=== PATIENT | female | born 1975 | race Caucasian/White ===

== ENCOUNTER 2020-10-13 13:45 | Observation (INO) | payer BC, OTHER ==
[~2020-10-13] VITALS: Ht 170.2 cm; Wt 92.0 kg
[~2020-10-13 13:45] MED LIST: GLUCAGON EMERGEN1 MG INJ; HUMALOG100 UNITS/ IV; HYDROCODON-ACE1 EA10 PO; LEVOTHYROXINE25 MCG PO; METFORMIN HCL500 MG PO; NAUZENE TABLET1 EACH PO; ONDANSETRON HCL4 MG PO; PREDNISOLONE ACE5 ML OD
[2020-10-13] MEDS ORDERED: LEVOTHYROXINE100 MCG PO (14:12)
[2020-10-13] MEDS ORDERED: OZEMPIC0.25 MG/0. SUB-Q (14:13)
--- NOTE | 2020-10-13 19:50 | NUR ---
pt on floor at this time, vitals taken for pt admit
--- NOTE | 2020-10-13 20:03 | NUR ---
pt ARRIVED TO FLOOR. TRANSFERRED SELF FROM STRETCH TO BED. VERY DROWSY. ORIENTED TO ALL. SALVADOR ANSWERED QUESTIONS. ASSESSMENT DONE. pt HAS LR INFUSING. pt DENIES PAIN AND NAUSEA AT THIS TIME. REQUESTED TO BE ALLOWED TO SLEEP. CALL LIGHT WITHIN REACH. LEFT FLOOR AT THIS TIME.
--- NOTE | 2020-10-13 21:54 | NUR ---
IN TO GIVE MEDICATIONS. BOLUS COMPLETED, IVF INFUSING PER ORDERS. MEDICATIONS GIVEN (SEE MAR). BLOOD SUGAR CHECKED. pt GAVE BOLUS USING INSULIN PUMP. pt DENIES NAUSEA AND PAIN AT THIS TIME. CALL LIGHT WITHIN REACH.
--- NOTE | 2020-10-14 00:55 | NUR ---
PATIENT RESTING QUIETLY ON HER LEFT SIDE, EYES CLOSED, RESPIRATIONS REGULAR AND EVEN, CALL LIGHT IN REACH.
--- NOTE | 2020-10-14 03:22 | NUR ---
PATIENT GOT NAUSEATED AFTER GETTING UP AND GOING TO THE BATHROOM. REGLAN WAS ALREADY GIVEN SCHEDULED, SO 4MG IV ZOFRAN GIVEN.
--- NOTE | 2020-10-14 04:53 | NUR ---
PATIENT STARTED HAVING DRY HEAVES AND WAS DUE FOR NO OTHER NAUSEA MEDICATION, BUT PHENERGAN. 12.5MG IV PHENERGAN IN 20 MLS NS PROGRAMED TO BE GIVEN OVER 15 MINUTES PER IV PUMP.
--- NOTE | 2020-10-14 05:05 | NUR ---
PATIENT'S NAUSEA WAS RELIEVED AFTER PHENERGAN INFUSION COMPLETE, AND PATIENT RESTING QUIETLY AT THIS TIME. CALL LIGHT IN REACH.
--- NOTE | 2020-10-14 06:05 | NUR ---
PATIENT HAS HAD REGLAN X1 SCHEDULED FOR NAUSEA THIS SHIFT AFTER I TOOK OVER THE PATIENT AT 2345, WELL 4MG OF ZOFRAN X1 IV, AND LATER IN THE SHIFT BEFORE REGLAN OR ZOFRAN DUE AGAIN 12.5MG IV PHENERGAN GIVEN PER POLICY. PATIENT'S NAUSEA IS CONTROLLED AT THIS TIME, PATIENT DOES NOT WANT TO TRY AND TAKE HER THYROID MEDICATION THIS AM AND HAS REFUSED IT. PATIENT GETTING LABS AT THIS TIME. CALL LIGHT IS IN REACH. PATIENT DID HAVE 1 PRN BLOOD SUGAR DONE THIS MORNING WITH A SUGAR OF 198 AND PATIENT GAVE HERSELF O.8UNITS OF INSULIN PER HER INSULIN PUMP.
--- NOTE | 2020-10-14 06:56 | NUR ---
IN TO SBA PT TO TOILET, TOLERATES WELL, NAUSEA AT TIMES, 400ML YELLOW URINE NOTED, PT SITTING AT BEDSIDE AT THIS TIME, PT DENIES NEEDING WATER REFILLED AT THIS TIME, NO FURTHER NEEDS AT THIS TIME
--- NOTE | 2020-10-14 07:30 | NUR ---
pt c/o nausea and dry heaving during report. In to give scheduled reglan. Pt remains on clear liquid diet. Refusing breakfast d/t nausea. BG 186, pt adjusted her personal pump to give appropriate dose also taking note of decreased oral intake. Pt has been slightly tachycardic, HR this am was 110-115. at bedside, call light in reach.
--- NOTE | 2020-10-14 09:35 | NUR ---
SBA WITH PATIENT TO MOLLY. MIO CHANGED. SPOUSE IN ROOOM. VITALS AND I&OS CHARTED. BREAKFAST ON BEDSIDE TABLE. FRESH ICE WATER PROVIDED, CALL LIGHT IN REACH
--- NOTE | 2020-10-14 09:55 | NUR ---
Pt nausea unrelieved by reglan. No emesis noted, however still dry-heaving occasionally. Pt given zofran and will continue to monitor. Dr. Israel in to see pt, WBC are 24 today and pt has been tachycardic. Dr think it is likely d/t inflammatory reaction to new diabetic medication pt started 3 weeks ago. New orders for abdominal and pelvic CT, reglan increased to 10 mg q6h. Pt denies pain at this time. SBA for ambulation. remains in room. Call light in reach.
--- NOTE | 2020-10-14 12:15 | NUR ---
Pt nausea still present and pt requesting phenergan. Given 12.5 phenergan through IV pump by Nancy BECK. Pt continues to refuse lunch and has had minimal PO intake. LR infusing @ 100 mls/hr. Temp 99.0. Pt appears flushed but denies feeling warm or chilled.
--- NOTE | 2020-10-14 13:30 | NUR ---
Pt has been more drowsy and sleeping on and off since receiving phenergan. remains at bedside.
--- NOTE | 2020-10-14 16:00 | NUR ---
PT UP TO BATHROOM TO VOID 700 MLS CLEAR, YELLOW URINE. DENIES DIZZINESS W/ AMBULATION. PT ALSO DENYING NAUSEA AT THIS TIME. PT SBA, NEEDS MINIMAL ASSISTANCE. PT DENIES APPETITE BUT REQUESTING DIET 7UP. MOUTH IS DRY. PT APPEARS FLUSHED, TEMP 99.3. HR 108. BP 168/78. CT SCAN RESULTS IN AND SHOW NO FINDINGS ASIDE FROM DISTENDED BLADDER. PT'S REPORTS SHE HAS BEEN NAUSEOUS AND NOT EATING WELL SINCE STARTING NEW MEDICATION 3 WEEKS AGO. PT LAST BM WAS 10/11, SHE REPORTS IT'S NORMAL FOR HER TO GO A FEW DAYS W/OUT REGULAR BM'S. ALSO COULD BE D/T LACK OF PO INTAKE. WAITING TO SEE DR. DEVRIES TO DISCUSS RESULTS BEFORE LEAVING.
--- NOTE | 2020-10-14 17:26 | NUR ---
DR. DEVRIES NOTIFIED OF PT MOST RECENT VS, BP 168/78 HR 108 AND TEMP 99.3 AND PT FLUSHED APPEARANCE. NEW ORDERS FOR CARVEDILOL 6.25 MG. REPORTS PT WAS ALSO FLUSHED IN APPEARANCE YESTERDAY. RN GIVEN PERMISSION TO NOTIFY KAYE AND PT OF NO ACUTE FINDINGS IN TODAY'S CT SCAN. BG'S HAVE BEEN 166-186 TODAY, INSULIN PUMP BEEN ADJUSTED BY PT ACCORDINGLY.
--- NOTE | 2020-10-14 18:01 | NUR ---
IN TO GIVE CARVIDELOL AND NOTIFY PT AND OF CT RESULTS PER PERMISSION FROM DR. DEVRIES. PT NOW C/O NAUSEA AGAIN, DRY HEAVING AND HICCUPS WELL. ZOFRAN IV GIVEN. PT C/O BURNING W/ LEFT WRIST IV FLUSH, MINIMAL REDNESS AND SWELLING NOTED AROUND SITE. IV REMOVED. RAC IV REMAINS INTACT. LR CONTINUES TO INFUSE @ 100 MLS/HR. NO LONGER AT BEDSIDE, WILL RETURN IN THE MORNING. PT CALL LIGHT WITHIN REACH.
--- NOTE | 2020-10-14 21:52 | NUR ---
PATIENT IS HAVING NAUSEA AND THIS WAS NOT RELIEVED WITH 10MG IV REGLAN AND NOT DUE FOR ZOFRAN YET, SO 12.5MG IV PHENERGAN IN 20MLS NS GIVEN PER PROTOCAL ON THE IV PUMP. PATIENT IS HAVING NO PAIN, IV FLUSHES WELL, AND FLUIDS INFUSING WNL. CALL LIGHT IS IN REACH.
--- NOTE | 2020-10-14 22:45 | NUR ---
IN RM GET VITALS, I&Os, RN TO BE IN RM SHORTLY
--- NOTE | 2020-10-15 00:05 | NUR ---
PATIENT IS RESTING QUIETLY, BUT IS AWAKE. NAUSEA REMAINS RESOLVED AT THIS TIME AND PATIENT HAS NO REQUESTS OR NEEDS AT THIS TIME. CALL LIGHT IN REACH.
--- NOTE | 2020-10-15 00:10 | NUR ---
PT CALLED D/T BEEPING IV PUMP. NEW BAG OF LR IS NOW INFUSING. PT'S IV IS A LITTLE LEAKY BUT FLUSHES FINE AND CAUSES NO PAIN. THERE IS NO SWELLING IN PT'S ARM WELL. GAVE PT A PILLOW TO PROP HER ARM ON AND PLACED A LITTLE GAUZE UNDERNEATH EDGE OF IV TAPE TO SEE IF IT GETS WET. ADVISED PT TO CALL IF IT LEAKS MORE OR IF SHE HAS ANY PAIN OR SWELLING. CALL LIGHT IS CLOSE.
--- NOTE | 2020-10-15 02:30 | NUR ---
PATIENT RIGHT AC IV WAS LEAKING, NO PAIN OR REDNESS AT THE SITE, TRIED TO REPOSITION AND REDRESS AND STILL LEAKING. IV DC'D, ATTEMPTED LEFT AC IV START START WITHOUT SUCESS.
--- NOTE | 2020-10-15 02:51 | NUR ---
ATTEMPTED TO START IV ON PT. PRIMARY RN IS IN THE ROOM ATTEMPTING IV START AT THIS TIME. PT IS A HARD START, NO RN AVAILABLE THAT CAN DO US GUIDED AT THIS TIME.
--- NOTE | 2020-10-15 03:00 | NUR ---
ATTEMPTED 2 MORE IV STARTS WITHOUT SUCESS, CALLING NURSE SUPERVISOR EDGING.
--- NOTE | 2020-10-15 03:49 | NUR ---
WAS CALLED PATIENT HAS HAD 7 ATTEMPTS FOR AN IV START WITHOUT SUCCESS. THERE IS A GUIDED ULTRASOUND NURSE ON SHIFT IN THE MORNING, SO ORDERS FROM INCLUDED HOLDING IV FLUIDS UNTIL IV ACCESS COULD BE RESTARTED, REGLAN 10MG PO SCHEDULED Q6HRS, 4MG SL ZOFRAN Q6HRS PRN NAUSEA, 25MG PHENERGAN TN SUPPOSITORY Q6 PRN NAUSEA. PATIENT HAS NO NAUSEA AT THIS TIME.
--- NOTE | 2020-10-15 06:30 | NUR ---
PATIENT HAD SOME IV PHENERGAN TOWARDS THE FIRST PART OF THE SHIFT AND BLOOD PRESSURE WAS ELEVATED, BUT CAME DOWN AFTER 12.5MG IV PHENERGAN GIVEN FOR NAUSEA. PATIENT HAS BEEN VOIDING WELL. PATIENT LOST HER ONLY IV SITE AFTER 2AM AND SHE IS A VERY HARD START AND 7 ATTEMPTS WERE MADE BETWEEN 4 RNS WITHOUT SUCCESS. FLUIDS PUT ON HOLD UNTIL AN ULTRASOUND GUIDED IV CAN BE PUT IN THIS AM. SL, PO, AND WA MEDS WERE ORDERED BY FOR NAUSEA UNTIL NEW IV PLACED, BUT PATIENT IS STILL WITHOUT NAUSEA aT THIS TIME. BOWEL TONES SEEM A LITTLE QUIETER THIS AM AND PATIENT SAYS SHE HAS NOT BEEN PASSING GAS. CALL LIGHT IS IN REACH. WILL GIVE REPORT TO AM NURSE TO HAVE BOWEL PROTOCOL STARTED. PATIENT'S CALL LIGHT IS IN REACH.
--- NOTE | 2020-10-15 06:45 | NUR ---
IN RM TO GET VITS/I&Os, FRESH DIET SODA PROVIDED AT THIS TIME, NO FURTHER NEEDS AT THIS TIME
--- NOTE | 2020-10-15 08:05 | NUR ---
PATIENT RESTING IN BED. WHITE BOARD UPDATED. RN IN ROOM. SETS UP BATRHOOM FOR SHOWER. CALL LIGHT WITHIN REACH. NO OTHER NEEDS AT THIS TIME
--- NOTE | 2020-10-15 08:15 | NUR ---
pt awake in bed this morning. Pt denies nausea or pain at this time. Sipping on diet 7up, does not want other liquids for breakfast. BP 165/80 HR down in 90's. Pt able to take oral morning meds. Pt RAC IV was removed last night d/t leaking and another IV was attempted 7 times, per report from shift engineer RN. Yelena, CCU RN in to attempt IV start this morning. 0800 BG 161 with morning, pt to adjust insulin pump accordingly. WBC is down to 12.5 this morning from 24 yesterday. Output is sufficient. Encouraging oral fluid intake. now at bedside and call light is in reach.
--- NOTE | 2020-10-15 09:59 | NUR ---
PATIENT RESTING IN BED. IN ROOM. VITAL SIGNS AND I&O DONE. CALL FINA VIGIL. NO OTHER NEEDS AT THIS TIME
--- NOTE | 2020-10-15 12:21 | NUR ---
PT NOON BG WAS 227, PT OWN INSULIN PUMP GAVE 1.8 UNITS. PT SAYS SHE DOES NOT CURRENTLY FEEL SYMPTOMS OF HYPERGLYCEMIA. RESTING IN BED, REFUSING LUNCH, BUT DRINKING DIET SODA. AT BEDSIDE AND CALL LIGHT IS IN REACH.
--- NOTE | 2020-10-15 13:44 | NUR ---
PATIENT RESTING IN BED. IN ROOM. VITAL SIGNS AND I&O DONE. HIGH BLOOD PRESSURE (184/87 MAP 110). RN NOTIFIED. CALL LIGHT WITHIN REACH. NO OTHER NEEDS AT THIS TIME
--- NOTE | 2020-10-15 14:10 | NUR ---
PATIENT AMBULATING IN THE HALLWAY WITH HER .
--- NOTE | 2020-10-15 15:40 | NUR ---
RECHECKING BP DUE TO PREVIOUS ELEVATED READING AND IT HAS ELEVATED FURTHER. DR DEVRIES NOTIFIED VIA PHONE MESSAGE, WAITING FOR HIS REPLY
--- NOTE | 2020-10-15 17:33 | NUR ---
PATIENT RESTING IN BED AND WATCHING TV. VITAL SIGNS AND I&O DONE. CALL LIGHT WITHIN REACH. NO OTHER NEEDS AT THIS TIME
--- NOTE | 2020-10-15 19:05 | NUR ---
RECEIVED REPORT FROM KIRAN DAWKINS. pt RESTING IN BED. ATE HALF OF HER SOUP. DENIES NAUSEA AT THIS TIME. PROVIDED FRESH WATER AND DIET SODA. NO FURTHER REQUESTS AT THIS TIME. CALL LIGHT WITHIN REACH.
--- NOTE | 2020-10-15 20:27 | NUR ---
UPDATED DR MYLES THAT pt HAS TOLERATED FULL LIQUID DIET PER NURSE NOTIFY. DR MYLES TO ROOM TO ASSESS.
[2020-10-15] MEDS ORDERED: METOCLOPRAMIDE10 MG PO (20:41)
[2020-10-15] MEDS ORDERED: ONDANSETRON HCL4 MG PO (20:43)
--- NOTE | 2020-10-15 21:24 | NUR ---
TALKED TO pt DOES NOT HAVE ZOFRAN AT HOME. DISCUSSED WITH DR MYLES NEW ORDERS FOR HOME PACK.
--- NOTE | 2020-10-15 21:34 | NUR ---
VSS. IV DC'D WNL pt DISCHARGING. pt CHANGING INTO OWN CLOTHES AT THIS TIME. DENIES ANY ADDITIONAL NEEDS.
--- NOTE | 2020-10-15 21:48 | NUR ---
IN TO DISCHARGE pt. pt HAS [employer] HOMEPACK IN HAND. 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 ALL BELONGINGS GATHERED BY pt. VERBALIZED UNDERSTANDING OF DISCHARGE INSTRUCTIONS. pt WILL SCHEDULE APPOINTMENT WITH PCP. WHEELED FROM FLOOR BY THIS RN. ARRIVED TO TAKE pt HOME. ALL QUESITONS ANSWERED.
== END 2020-10-15 21:40 | disposition home or self-care (01) ==
LOC: ED 13:45 → MS 13:47
PROVIDERS: ADMIT Internal Medicine; ATTEND Internal Medicine
DX: E10.43 Type 1 diabetes mellitus with diabetic autonomic (poly)neuropathy (principal); K31.84 Gastroparesis; T50.995A Adverse effect of other drugs, medicaments and biological substances, initial encounter; E86.0 Dehydration; R65.10 Systemic inflammatory response syndrome (SIRS) of non-infectious origin without acute organ dysfunction; I10 Essential (primary) hypertension; E10.319 Type 1 diabetes mellitus with unspecified diabetic retinopathy without macular edema; E03.9 Hypothyroidism, unspecified; Z79.899 Other long term (current) drug therapy; Z79.4 Long term (current) use of insulin; Z79.890 Hormone replacement therapy; Z96.41 Presence of insulin pump (external) (internal); Z20.828 Contact with and (suspected) exposure to other viral communicable diseases
CPT/HCPCS: 36415; 74177; 80048; 80053; 81001; 83690; 83735; 84703; 85007; 85025; 85032; 86140; 96372; 96374; 96375; 96376; 99285-25; C9113; C9803; G0378; J1650; J2405; J2550; J2765; J3480; J7030; J7060; J7121; U0003